=== PATIENT | female | born 1955 | race Caucasian/White ===

== ENCOUNTER 2019-07-25 14:40 | Emergency (ER) | payer BC ==
[~2019-07-25] VITALS: Ht 160 cm; Wt 53.0 kg
[2019-07-25 15:23] LABS: BASOPHILS # (AUTO) 0.1 X10'3 (0-0.2); EOSINOPHILS % (AUTO) 0.7 % (0-6); HEMATOCRIT 46.8 % (35.0-45.0); HEMOGLOBIN 16.2 g/dl (12.0-16.0); LYMPHOCYTES # (AUTO) 1.8 X10'3 (1.1-4.8); LYMPHOCYTES % (AUTO) 26.7 % (21-51); MEAN CORPUSCULAR HEMOGLOBIN 31.4 PG (27.0-31.0); MEAN CORPUSCULAR HGB CONC 34.6 g/dL (33.0-36.5); MEAN CORPUSCULAR VOLUME 90.7 FL (78-98); MEAN PLATELET VOLUME 8.7 FL (7.4-10.4); MONOCYTES # (AUTO) 0.3 X10'3 (0-0.9); MONOCYTES % (AUTO) 5.2 % (2-12); NEUTROPHILS # (AUTO) 4.4 X10'3 (1.8-7.7); NEUTROPHILS % (AUTO) 66.4 % (42-75); PLATELET COUNT 354 X10'3 (140-440); RED BLOOD COUNT 5.15 X10'6 (4.20-5.60); RED CELL DISTRIBUTION WIDTH 13.7 % (11.5-14.5); WHITE BLOOD COUNT 6.7 X10'3 (4.5-11.0)
[2019-07-25 15:28] LABS: ALANINE AMINOTRANSFERASE 21 U/L (12-78); ALBUMIN 3.9 G/DL (3.4-5.0); ALBUMIN/GLOBULIN RATIO 1.1 (1.1-1.5); ALKALINE PHOSPHATASE 104 IU/L (46-116); ANION GAP 15 (8-16); ASPARTATE AMINO TRANSFERASE 17 U/L (10-37); BILIRUBIN,TOTAL 0.5 MG/DL (0.1-1.0); BLOOD UREA NITROGEN 21 MG/DL (7-18); CALCIUM 9.7 MG/DL (8.5-10.1); CHLORIDE 104 MMOL/L (99-107); CREATININE 0.75 MG/DL (0.40-0.90); GLUCOSE 106 MG/DL (70-104); POTASSIUM 3.8 MMOL/L (3.5-5.1); SODIUM 141 MMOL/L (135-145); TOTAL PROTEIN 7.6 G/DL (6.4-8.2); eGFR 78 ML/MIN
[2019-07-25 15:34] LABS: MAGNESIUM 2.1 MG/DL (1.5-2.4)
[2019-07-25 17:33] LABS: ETHANOL < 0.010 GM/DL (0.0-0.010)
--- NOTE | 2019-07-25 17:33 | NUR ---
Radha DAUGHTER [phone] CALL FOR QUESTIONS OR RIDE.
[2019-07-25 18:30] LABS: CLARITY,URINE SLIGHTLY CLOUDY (Clear); COLOR,URINE YELLOW (Yellow); GLUCOSE, URINE NEGATIVE (Neg); KETONES,URINE TRACE mg/dl (Neg); LEUKOCYTE ESTERASE ,URINE NEGATIVE (Neg); NITRITES, URINE NEGATIVE (Neg); OCCULT BLOOD,URINE NEGATIVE (Neg); PROTEIN,URINE NEGATIVE (Neg); UROBILINOGEN,URINE 0.2 E.U/dL (0.2-1.0)
[2019-07-25 18:42] LABS: UA COLLECTION TYPE FOLEY CATH; URINE AMPHETAMINE SCREEN NEGATIVE (Neg); URINE BARBITUATE SCREEN NEGATIVE (Neg); URINE BENZODIAZEPINES SCREEN NEGATIVE (Neg); URINE CANNABINOID SCREEN NEGATIVE (Neg); URINE COCAINE SCREEN NEGATIVE (Neg); URINE METHADONE SCREEN NEGATIVE (Neg); URINE OPIATE SCREEN NEGATIVE (Neg); URINE PHENCYCLIDINE SCREEN NEGATIVE (Neg)
[2019-07-25 18:43] LABS: HYALINE CASTS 0-3 /LPF (NEGATIVE); MUCUS STRANDS MANY /LPF (Neg); SQUAMOUS EPITHELIAL CELL,UR FEW /LPF (FEW)
[2019-07-25 18:45] LABS: BACTERIA,URINE NONE SEEN /HPF (Neg); CAL OXALATE CRYSTALS FEW /HPF (NEGATIVE); FINE GRANULAR CAST 0-3 /LPF (NEGATIVE); RBC,URINE 0-2 /HPF (0-2); WBC,URINE 0-4 /HPF (0-4)
[2019-07-25] MEDS: LORazepam 1 MG tablet PO PRN (19:56)
--- NOTE | 2019-07-25 20:42 | NUR ---
daughters work number: [phone] [place]
--- NOTE | 2019-07-25 20:43 | NUR ---
spoke with daughter who provided some background. pt had first bout of severe depression in 2016, was admitted to [facility] for mh issues. pt was doing good up until about 1.5 months ago when she stopped taking her medicine. daughter reports increasing depression and decreasing ability to care for herself, to the point that she barely speaks now.
--- NOTE | 2019-07-25 20:45 | NUR ---
pt reporting extreme anxiety so consult with dr bustos, verbal order for ativan 1 mg prn [id number].
--- NOTE | 2019-07-25 21:22 | NUR ---
pt is lying in bed staring at ceiling. no s/s distress noted.
--- NOTE | 2019-07-25 22:35 | NUR ---
pt is lying in bed resting. no s/s of distress noted, will continue to monitor.
--- NOTE | 2019-07-26 06:30 | NUR ---
Pt is resting in bed peacefully at change of shift. She requests coffee and this was accomodated. No observed distress. Will continue to monitor.
--- NOTE | 2019-07-26 07:25 | NUR ---
Pt is A&O x4. She is answering appropriately. Thought process is linear and her speech is clear. 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 She reports that she had one other episode like this in the past, approximately three years ago, with symptoms of "almost catatonia". She reports at that time she went off of her antidepressants because she "felt good and didn't think I needed them". She reports she is not sure what happened this time, but she states that she was lucid during her withdrawn behavior and just felt "really scared and like I wanted to talk and move but couldn't". She is pleasant and cooperative with care. She reports weight loss since May, going from 133 to 118lbs. She has a FC in place for retention and reports difficulty having a bowel movement.
--- NOTE | 2019-07-26 08:33 | NUR ---
Packet faxed to [facility]
--- NOTE | 2019-07-26 08:33 | NUR ---
Pt is sitting in her bed eating breakfast at this time, no distress observed.
--- NOTE | 2019-07-26 09:40 | NUR ---
Pt is resting in bed peacefully with hwead raised and eyes open. No distress observed.
--- NOTE | 2019-07-26 10:40 | NUR ---
Pt is resting in bed peacefully at this time. Pt reports that she has not hada BM in sometime. Will discuss with .
--- NOTE | 2019-07-26 11:45 | NUR ---
Pt is inquiring what the next steps are in her plan of care. Reassured patient that [facility] will be there to talk to her shortly. Pt verbalized understanding and denies needs at this time.
[2019-07-26] MEDS ORDERED: magnesium hydroxide 30ml (MOM) UD suspension PO ONE (12:55)
--- NOTE | 2019-07-26 13:20 | NUR ---
D/C'd Herring. 950ml of dark diego urine emptied. Encouraged fluid intake. Will continue to monitor for voiding habits.
--- NOTE | 2019-07-26 13:43 | NUR ---
LIZABETH Pro sent on break, pt currently sitting quietly on bed. Pt noted to have milk of mag order and I inquired pt if she was having some indigestion or upset stomach. Pt reports having "some" but reports it's going away. Offered med to pt and pt declined.
--- NOTE | 2019-07-26 13:56 | NUR ---
Pt was seen by [facility] worker Jack. Pt placed on 5150.
--- NOTE | 2019-07-26 15:00 | NUR ---
Gave Pt MOM for no BM. Will continue to monitor. Pt denies complaints at this time.
[2019-07-26] MEDS: LORazepam 1 MG tablet PO PRN (16:02)
--- NOTE | 2019-07-26 16:05 | NUR ---
Pt is seen ambulating in the unit with a 4WW. She was yet to have a BM or void will continue to monitor.
--- NOTE | 2019-07-26 17:44 | NUR ---
Offered Pt apple juice. Pt is drinking this. Pt is standing up at the nurse's station right now. No distress observed. Pt denies complaints at this time.
[2019-07-26] MEDS ORDERED: LAMO100T PO (19:02)
--- NOTE | 2019-07-26 20:08 | NUR ---
The patient has been resting on her bed. She is friendly and pleasant with staff. She is alert and oriented. She had her conroy cath removed at 1400 today and she did get up to the bathroom and voided 400 cc. She cannot remember when she had a BM but she has good bowel sounds and was given MOM in the am.
--- NOTE | 2019-07-26 20:16 | NUR ---
The patient has been accepted by [facility]
[2019-07-26 20:51] VITALS: BP 131/87
[2019-07-26] MEDS ORDERED: CLON0.5T4 PO (22:58)
[2019-07-26] MEDS ORDERED: CLOM50CA4 PO (22:58)
[2019-07-26] MEDS ORDERED: PARO-62 PO (22:58)
[2019-07-26] MEDS ORDERED: MIRT15TA PO (23:02)
== END 2019-07-26 20:54 | disposition home or self-care (01) ==
LOC: ER 14:41
DX: F79 Unspecified intellectual disabilities (principal); R62.7 Adult failure to thrive; Z91.14 Patient's other noncompliance with medication regimen
CPT/HCPCS: 36415; 80053; 80305; 80320; 81001; 83735; 83880; 84443; 85025; 99284; 99285

== ENCOUNTER 2019-07-26 20:23 | Inpatient (IN) | payer BC ==
[~2019-07-26] VITALS: Ht 160 cm; Wt 44.0 kg
[~2019-07-26 20:23] MED LIST: LAMO100T PO
[2019-07-26] MEDS ORDERED: mag hydrox/Alum hydrox/simeth 30ml oral suspension PO PRN (21:10)
[2019-07-26] MEDS ORDERED: loperamide 2mg capsule PO PRN (21:10)
[2019-07-26] MEDS ORDERED: acetaminophen 325mg tablet PO PRN ×2 (21:10)
[2019-07-26] MEDS ORDERED: mirtazapine 15mg tablet PO ONE (22:35)
[2019-07-26] MEDS ORDERED: CLON0.5T4 PO (22:58)
[2019-07-26] MEDS ORDERED: CLOM50CA4 PO (22:58)
[2019-07-26] MEDS ORDERED: PARO-62 PO (22:58)
[2019-07-26] MEDS ORDERED: MIRT15TA PO (23:02)
--- NOTE | 2019-07-26 23:35 | NUR ---
Nursing Progress Note Legal hold: 5150 Client on involuntary status for GD Why are they here: Pt has not been eating or performing ADLs. She has lost 15 pounds in the last month and a half. She has also not been taking her meds and is aware she needs help but is unable to state what she needs help with. Per Dr Yañez office reports concern as the pts weight dropped significantly from 133 to 118. Assessment Pt arrived on floor accompanied by Nevin Richter and security. 2 person skin assessment was completed by Corby BARONE and Earline BARONE. Pt is calm, cooperative and took shower when she arrived. pt reports she is here because she needs help but is unable to state what she needs help with. Pt is having trouble formulating thoughts and difficulty recalling events. Pt reports she needs help with sleep and has been unable to sleep. Pt is med compliant, complained of feeling tired. Pt is cooperative with assessment and went to sleep shortly after arriving. Pt requested water and juice and was provided with a snack. S/I, H/I: denies A/VH: denies Sleep: poor sleep, difficulty falling asleep ADL's: independent Group attendance: no evening groups Were meds taken: yes Any med S/E none reported or observed Mental Status Exam Appearance: adequately groomed and dressed, pt showered this evening and brushed her hair Eye contact: good Behavior: calm cooperative Speech: normal rate and rhythm Mood: depressed Affect: constricted Thought process: thought blocking, linear Thought Content: asking about medications to go to bed Cognition: Pt is oriented to person, place, time, but she has difficulty with some recent and remote events. She doesnt recall what year she had surgery on her leg, then doesnt recall if she had a flu shot this year but states she had one. She cant recall if she has been taking her meds or when she had her last BM. According to ER nurse she had a small BM today. Insight: fair Judgment: fair PRNs used: none Interventions Therapeutic interventions: 1:1 therapeutic assessment, maintained safe therapeutic milieu, provided active listening with positive reinforcement, provided medication administration/education/monitoring as needed; Q15 safety checks. Restraints/seclusion/emergency medication: N/A Justification of Continued Inpatient Treatment: Continued therapeutic support and medication management needed to provide stabilization, prevent decompensation, improve coping mechanisms decreasing risk to patient and re-admittance.
[2019-07-27 07:30] VITALS: BP 105/72
[2019-07-27 08:14] LABS: HEMOGLOBIN A1C 5.1 % (4.5-6.2)
[2019-07-27 08:22] LABS: CHOLESTEROL 161 MG/DL (0-200); HDL CHOLESTEROL 53 MG/DL (35-60); LDL CHOLESTEROL 96 MG/DL (50-100); TRIGLYCERIDES 78 MG/DL (20-135)
--- NOTE | 2019-07-27 10:00 | NUR ---
Pt. c/o of not being able to urinate this am. Bladder palpated and feels distended. Pt. bladder scanned and shows 999ml of urine. Hospitalist paged.
--- NOTE | 2019-07-27 10:30 | NUR ---
RN received order from hospitalist for Conroy catheter, however, pt. refused. RN offered to have female nurse place conroy but pt. continued to refuse. Hospitalist paged.
[2019-07-27] MEDS ORDERED: tamsulosin 0.4mg capsule PO ONE (10:50)
--- NOTE | 2019-07-27 11:00 | NUR ---
Pt. agreeable to medication to assist urinary retention. Flomax 0.4mg ordered and pt. took medication. Pt. reported she was able to urinate only a little. Pt. has hat and encouraged to urinate into hat.
[2019-07-27] MEDS: magnesium hydroxide 30ml (MOM) UD suspension PO PRN (11:25)
--- NOTE | 2019-07-27 11:25 | NUR ---
Pt. given milk of magnesia for c/o of constipation.
--- NOTE | 2019-07-27 13:00 | NUR ---
Pt. reports she has not urinated except once this AM. RN asked pt. if she would agree to be bladder scanned, pt. refused.
[2019-07-27] MEDS ORDERED: thiamine 100mg tablet PO ONE (13:55)
[2019-07-27] MEDS ORDERED: folic acid 1mg tablet PO ONE (13:55)
--- NOTE | 2019-07-27 14:00 | NUR ---
RN asked pt. if she would agree to be bladder scanned. Pt. refused. Pt. continues to refuse Herring catheterization.
[2019-07-27] MEDS: LORazepam 1 MG tablet PO PRN (14:17)
--- NOTE | 2019-07-27 14:41 | NUR ---
Malnutrition consult: Per MD notes pt is reported to have stopped eating, caring for self, and performing ADLS over the last 1.5 months resulting in 15 lb wt loss from 133 lbs to 118 lbs. This is severe wt loss of 11% in 1.5 months. Likely pt with suboptimal PO intake [employer]. Pt currently meets criteria for malnutrition, MD notified. Pt presented with depression, memory problems, reduced ability to care for self and urinary retention. Malnutrition education with ONS recommendations not appropriate at this time. Per RN notes pt with small BM 07/26 with first dose of PRN MoM given today, pt s/p CT with findings of small-moderate hiatal hernia. Pt currently on regular diet documented with 25-50% PO intake at breakfast however documented to have refused lunch not meeting nutrient needs. Will continue to follow closely and make recommendations as appropriate. Recommendations: 1) Continue regular diet 2) Encourage PO intake; honor food preferences; monitor need for ONS 3) Bowel care PRN 4) Wt per rx Addendum: 07/27/19 at [address] Amended: Links added.
--- NOTE | 2019-07-27 15:00 | NUR ---
RN asked pt. if she would agree to be bladder scanned. Pt. refused. Pt. continues to refuse Herring catheterization.
--- NOTE | 2019-07-27 16:00 | NUR ---
RN asked pt. if she would agree to receive bladder scanner and/or Herring catheter but Pt. refused.
--- NOTE | 2019-07-27 17:00 | NUR ---
RN asked pt. if she would agree to receive bladder scanner and/or Herring catheter but Pt. refused.
--- NOTE | 2019-07-27 18:10 | NUR ---
Herring catheter placed and pt. tolerated well. 500 mls of diego colored urine noted in Herring bag Will continue to monitor.
--- NOTE | 2019-07-27 18:31 | NUR ---
Nursing Progress Note Legal hold: 5150 SBAR received by LARRY Patten. Client on involuntary status for GD Why are they here: Pt has not been eating or performing ADLs. She has lost 15 pounds in the last month and a half. She has also not been taking her meds and is aware she needs help but is unable to state what she needs help with. Per Dr Yañez office reports concern as the pts weight dropped significantly from 133 to 118. Assessment Pt. asleep at start of shift. Ate 25% of breakfast. Pt. reports she has not urinated by 9AM and pt. bladder scanned with result of 999ml urine residual. Hospitalist contacted and ordered Herring catheter placed but pt. refused. 1:1 done at bedside pt. reports 10/10 depression but denies SI/HI, A/V Hallucinations. Pt. offers minimal information during interview and does not give background information to her admission. RN received order for Flomax 0.4mg po and pt took medication. Pt. reported only minimal urine output. Pt. has hat in bathroom. Pt. given Ativan 1mg po for anxiety. Pt. did not attend groups but laid in bed for majority of day. RN asked pt. throughout the day if she would receive the Herring or allow a bladder scan but pt. refused both. Pt. denies pain but reports discomfort. Pt. did agree to receive Herring catheter and tolerated well. S/I, H/I: denies A/VH: denies Sleep: Pt. awake majority of shift. ADL's: independent Group attendance: no evening groups Were meds taken: yes Any med S/E none reported or observed Mental Status Exam Appearance: adequately groomed and dressed. Eye contact: good Behavior: calm but resistive to care. Speech: normal rate and rhythm Mood: depressed Affect: constricted Thought process: thought blocking, linear Thought Content: Difficult to assess. Refusing Herring Catheter. Cognition: Pt is oriented to person, place, time, but not to event. Insight: Poor Judgment: poor PRNs used: Ativan Interventions Therapeutic interventions: 1:1 therapeutic assessment, maintained safe therapeutic milieu, provided active listening with positive reinforcement, provided medication administration/education/monitoring as needed; Q15 safety checks. Pt. requires Herring catheterization for urinary retention. Restraints/seclusion/emergency medication: N/A Justification of Continued Inpatient Treatment: Continued therapeutic support and medication management needed to provide stabilization, prevent decompensation, improve coping mechanisms decreasing risk to patient and re-admittance.
[2019-07-27 20:00] VITALS: BP 99/56
[2019-07-27] MEDS: docusate sod 100mg capsule PO SCH (20:33)
[2019-07-27] MEDS: thiamine 100mg tablet PO SCH (20:34)
[2019-07-27] MEDS ORDERED: polyethylene glycol 3350 17gm powd pack PO ONE (21:00)
[2019-07-27] MEDS ORDERED: mirtazapine 15mg tablet PO SCH (21:00)
--- NOTE | 2019-07-27 23:42 | NUR ---
Nursing Progress Note Legal hold: 5150 SBAR received by LARRY Patten. Client on involuntary status for GD Why are they here: Pt has not been eating or performing ADLs. She has lost 15 pounds in the last month and a half. She has also not been taking her meds and is aware she needs help but is unable to state what she needs help with. Per Dr Yañez office reports concern as the pts weight dropped significantly from 133 to 118. Assessment Pt is laying in bed at change of shift. She remained in bed for the duration of the shift. Pt reports she ate dinner but appetite is low. Pt drinks some water and took evening meds. Pt reports she is feeling "ok" but gives minimal response to questions. Appears depressed. Pt is med compliant. Pt denies any pain or discomfort, denies s/i, denies a/vh. Pt did not attend groups today stating she didnt feel like getting out of bed. S/I, H/I: denies A/VH: denies Sleep: Pt reports difficulty falling asleep ADL's: independent Group attendance: no evening groups Were meds taken: yes Any med S/E none reported or observed Mental Status Exam Appearance: adequately groomed and dressed. Eye contact: good Behavior: calm but resistive to care. Speech: soft spoken, normal rate, rhythm Mood: depressed Affect: constricted Thought process: thought blocking, linear Thought Content: Difficult to assess. Asks only for sleep medicine Cognition: Pt is oriented to person, place, time, but not to event. Insight: Poor Judgment: poor PRNs used: Ativan Interventions Therapeutic interventions: 1:1 therapeutic assessment, maintained safe therapeutic milieu, provided active listening with positive reinforcement, provided medication administration/education/monitoring as needed; Q15 safety checks. Pt. requires Herring catheterization for urinary retention. Restraints/seclusion/emergency medication: N/A Justification of Continued Inpatient Treatment: Continued therapeutic support and medication management needed to provide stabilization, prevent decompensation, improve coping mechanisms decreasing risk to patient and re-admittance.
[2019-07-28] MEDS: folic acid 1mg tablet PO SCH (07:34)
[2019-07-28] MEDS: docusate sod 100mg capsule PO SCH ×2 (07:34→20:30)
[2019-07-28] MEDS: multivitamins, therapeutics tablet PO SCH (07:34)
[2019-07-28] MEDS: thiamine 100mg tablet PO SCH ×2 (07:34→20:30)
[2019-07-28 08:00] VITALS: BP 133/77
--- NOTE | 2019-07-28 09:20 | NUR ---
Met with Ct to complete Psychosocial Assessment. She had difficulty answering questions with very delayed responses. She appeared to have very little insight regarding her symptoms. She reported she is not comfortable going to groups, partly because she has a catheter. Encouraged her to attend groups. She has not worked since May and does not seem to know if she has any income. [employer] will attempt to contact her sister to get more information. JORGE Ram Addendum: 07/28/19 at 0939 by Rosy Casanova Amended: Links added.
--- NOTE | 2019-07-28 11:20 | NUR ---
Attempted to reach Swapna's sister, Agnes (ph# [phone]). No answer and unable to leave a message. JORGE Ram
[2019-07-28] MEDS: lactose-reduced food (Ensure Enlive) - 237ml bottle PO SCH ×2 (13:00→18:31)
--- NOTE | 2019-07-28 14:20 | NUR ---
Pt. discharged to home picked up by in vehicle. Pt. discharged with all belongings. RN discussed f/u appointments and medication regimen and pt. verbalized understanding. Pt. discharged with scripts. Pt. denies SI/HI, A/V H and is in no apparent psychological or emotional distress. Pt. is alert and oriented x4. Addendum: 07/28/19 at 1453 by Kailash Henning RN ATTENTION: Note written on wrong patient. Pt. not discharged.
--- NOTE | 2019-07-28 17:30 | NUR ---
Nursing Progress Note Legal hold: 5150 SBAR received by LARRY Patten. Client on involuntary status for GD Why are they here: Pt has not been eating or performing ADLs. She has lost 15 pounds in the last month and a half. She has also not been taking her meds and is aware she needs help but is unable to state what she needs help with. Per Dr Yañez office reports concern as the pts weight dropped significantly from 133 to 118. Assessment Pt. laying in bed at start of shift and awake. Pt. has Herring catheter in place and secured. Pt. ate 25% of breakfast and 25% of lunch. Pt. reports depression 06/16 and anxiety 06/16. Pt. did not want any anxiolytic medication. Pt. has thought blocking and is difficult to get information from during interview. Pt. takes a long time to respond to questions. Pt. reports she has not had a bowel movement for at least 5 days but maybe longer, she is not sure. Pt. reports she is embarrassed by the Herring catheter and does not want to get out of bed. Pt. instructed to shift weight to her sides every hour, pt. is compliant. Pt. had 300mls output from Herring catheter today. S/I, H/I: denies A/VH: denies Sleep: Pt. laying in bed but does not appear to nap during the day. ADL's: independent Group attendance: no evening groups Were meds taken: yes Any med S/E none reported or observed Mental Status Exam Appearance: adequately groomed and dressed. Eye contact: good Behavior: calm but resistive to care. Speech: soft spoken, normal rate, rhythm Mood: depressed Affect: Congruent with mood. Thought process: thought blocking, linear Thought Content: difficult to assess due to thought blocking Cognition: A&Ox4 Insight: Poor Judgment: poor PRNs used: None Interventions Therapeutic interventions: 1:1 therapeutic assessment, maintained safe therapeutic milieu, provided active listening with positive reinforcement, provided medication administration/education/monitoring as needed; Q15 safety checks. Pt. requires Herring catheterization for urinary retention. Restraints/seclusion/emergency medication: N/A Justification of Continued Inpatient Treatment: Continued therapeutic support and medication management needed to provide stabilization, prevent decompensation, and improve coping mechanisms decreasing risk to patient and re-admittance.
[2019-07-28 20:00] VITALS: BP 135/87
[2019-07-28] MEDS: LORazepam 1 MG tablet PO PRN (20:30)
--- NOTE | 2019-07-28 23:24 | NUR ---
Nursing Progress Note Legal hold: 5150 SBAR received by LARRY Patten. Client on involuntary status for GD Why are they here: Pt has not been eating or performing ADLs. She has lost 15 pounds in the last month and a half. She has also not been taking her meds and is aware she needs help but is unable to state what she needs help with. Per Dr Yañez office reports concern as the pts weight dropped significantly from 133 to 118. Assessment Pt laying in bed at change of shift. She doesn't want to get out of bed because of the Herring catheter in place. Catheter care was completed this shift. Pt reports no discomfort. Pt is tearful and states she feels "afraid" and would like someone to sit with her. She denies hearing any voices, denies s/i. Pt reports some anxiety and was given prn ativan, she has some improvement with thought blocking and says more after taking the ativan. pt states "why did this happen to me? I should have made different choices in life." pt is unable to ellaborate what she means and becomes tearful and states she can't say. Pt seems to allude that she isnt comfortable talking about something, and looks over her shoulder to see if anyone can hear what she is about to tell me. Pt stopped talking when a door in the hallway was shut. She was offered prune juice and states "you've been very sweet, so I will drink this, but only for you." Explained to pt that she hasnt been drinking much water and this might also help with hydration. Pt ate 50% of her protein with her dinner and had a protein shake. S/I, H/I: denies A/VH: denies Sleep: Pt. laying in bed ADL's: independent Group attendance: no evening groups Were meds taken: yes Any med S/E none reported or observed Mental Status Exam Appearance: adequately groomed and dressed. Eye contact: good Behavior: calm but resistive to care. Speech: soft spoken, normal rate, rhythm Mood: depressed Affect: Congruent with mood. Thought process: thought blocking, linear Thought Content: difficult to assess due to thought blocking Cognition: A&Ox4 Insight: Poor Judgment: poor PRNs used: ativan Interventions Therapeutic interventions: 1:1 therapeutic assessment, maintained safe therapeutic milieu, provided active listening with positive reinforcement, provided medication administration/education/monitoring as needed; Q15 safety checks. Pt. requires Herring catheterization for urinary retention. Restraints/seclusion/emergency medication: N/A Justification of Continued Inpatient Treatment: Continued therapeutic support and medication management needed to provide stabilization, prevent decompensation, and improve coping mechanisms decreasing risk to patient and re-admittance. Pts daughter called and states her mother has a hx of not eating if she feels constipated and has had digestion issues in the past. pts daughter would also like the doctor to know her mother had gene testing done at Dr. 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 Pts daughter was given visiting hour information. She also added that her mother seemed to do better when she was given ativan in the ER in the past.
[2019-07-29 08:00] VITALS: BP 123/77
[2019-07-29] MEDS: lactose-reduced food (Ensure Enlive) - 237ml bottle PO SCH ×3 (08:00→18:00)
[2019-07-29] MEDS: docusate sod 100mg capsule PO SCH ×2 (08:39→20:23)
[2019-07-29] MEDS: thiamine 100mg tablet PO SCH ×2 (08:39→20:23)
[2019-07-29] MEDS: multivitamins, therapeutics tablet PO SCH (08:39)
[2019-07-29] MEDS: folic acid 1mg tablet PO SCH (08:39)
[2019-07-29] MEDS: LORazepam 1 MG tablet PO PRN ×3 (08:43→22:13)
[2019-07-29] MEDS ORDERED: magnesium citrate 296ml oral solution PO ONE (10:50)
--- NOTE | 2019-07-29 11:13 | NUR ---
Reassessment: Pt with 25-50% PO intake on regular diet not meeting nutrient needs. Ensure Enlive has been ordered TID and pt refused first offer at dinner last night, pending documentation of ONS acceptance today. LBM documented as 07/22. Pt received prune juice yesterday per RN notes and per med list received one time dose of Mag Citrate today. Pt also with routine Colace and MoM PRN last given 07/27. Likely constipation and patient's current mentation impacting PO intake. Will continue to follow closely and make recommendations as appropriate. Recommendations: 1) Continue regular diet 2) Encourage PO intake; honor food preferences 3) Ensure Enlive TID 4) Routine bowel care 5) Wt per rx Addendum: 07/29/19 at [address] Amended: Links added.
--- NOTE | 2019-07-29 17:51 | NUR ---
Nursing Progress Note Legal hold: 5150 SBAR received by LARRY Del Real. Client on involuntary status for GD Why are they here: Pt has not been eating or performing ADLs. She has lost 15 pounds in the last month and a half. She has also not been taking her meds and is aware she needs help but is unable to state what she needs help with. Per Dr Yañez office reports concern as the pts weight dropped significantly from 133 to 118. Assessment Pt laying in bed at change of shift. She doesn't want to get out of bed because of the Herring catheter in place. Patient takes her medications without issue. She appears anxious, looking around, pausing before answering questions and fidgeting her hands, ativan administered. She states that she has been eating her meals in her room due to the Herring. Patient states that she would like to take a shower after her Herring is removed. Patients daughter visits and allowed time for questions. Both patient and daughter understand plan of care and all questions are answered. Patient is fearful of the Herring, feeling that it will cause her . Patient reports she feels the need to have a BM but is unable to, Mag sitrate is administered. Herring is removed, urine in Herring bag is clear but urine in the top of tube is cloudy and appears to have sediment. Patient attempts to urinate and the small amount that is excreted into the hat is cloudy with sediment. Patient denies any pain. Patient showers, attends groups, attends meals in group room and walks the rashid during the day. Patient again appears anxious expressing the same s/s as before, Ativan administered and aromatherapy used. S/I, H/I: denies A/VH: denies Sleep: 5.25hrs noc ADL's: showered Group attendance: yes Were meds taken: yes Any med S/E none reported or observed Mental Status Exam Appearance: adequately groomed and dressed. Eye contact: direct Behavior: friendly but fearful Speech: soft spoken, normal rate, rhythm Mood: afraid but pleasant Affect: Congruent with mood. Thought process: thought blocking, linear Thought Content: afraid that her illness will lead to Cognition: A&Ox4 Insight: Poor Judgment: poor PRNs used: ativan Interventions Therapeutic interventions: 1:1 therapeutic assessment, maintained safe therapeutic milieu, provided active listening with positive reinforcement, provided medication administration/education/monitoring as needed; Q15 safety checks. Pt. requires Herring catheterization for urinary retention. Restraints/seclusion/emergency medication: N/A Justification of Continued Inpatient Treatment: Continued therapeutic support and medication management needed to provide stabilization, prevent decompensation, and improve coping mechanisms decreasing risk to patient and re-admittance.
[2019-07-29 19:00] VITALS: BP 105/70
--- NOTE | 2019-07-30 00:51 | NUR ---
Nursing Progress Note Legal hold: 5250 Exp 08/12 @ 2054; Hearing 08/01/19 Report received from LIAZBETH Gonzalez with use of SBAR Client on involuntary status for GD Why are they here: Pt has not been eating or performing ADLs. She has lost 15 pounds in the last month and a half. She has also not been taking her meds and is aware she needs help but is unable to state what she needs help with. Per Dr Yañez office reports concern as the patient's weight dropped significantly from 133 to 118. Assessment What happened this shift: Pt laying in bed at shift change. This automotive service writer introduced self and established rapport. Pt's FC was d/c earlier in the day. Pt states "I left a big mess in the bathroom, there is stuff all over." Pt has also been constipated was administered Cit Mag earlier. Pt had a med sized hard ball of stool and this automotive service writer measured 550 cc of urine. At this time urine appeared cloudy w/sediment. Wasn't sure what could have been sediment vs. TP. Pt kept apologizing about "the mess" and perseverated on how she could "poop or pee." Reinforced the positive of yes she is urinating and yes she had a small BM. Encouraged water and for pt to ambulate. When asked if pt felt depressed "I feel depressed because I can't poop." Pt denies SI and when asked what brought her to [facility] pt states "it was because I was dehydrated. Pt was compliant with medication and 1:1 assessment. Later pt was feeling anxious and she requested Ativan. Explained to pt that a clean catch urine sample is needed and to let this automotive service writer know before she has to urinate again. Checked on pt around 2330 and measured out 750 cc of urine from hat. Reminded pt about urine sample. S/I, H/I: None reported or observed A/VH: None reported or observed Sleep: Refer to Sleep Assessment ADL's: Independent Group attendance: slot shift supervisor, not group Were meds taken: Medication compliant Any med S/E: None reported or observed Mental Status Exam Appearance: Adequately groomed and dressed. Eye contact: Good Behavior: Cooperative, guarded Speech: Soft, normal rate, rhythm Mood: A little anxious, depressed Affect: Congruent with mood. Thought process: Linear Thought Content: "I can't go to the bathroom" Cognition: A&Ox4 Insight: Poor Judgment: Poor PRNs used: Ativan Interventions Therapeutic interventions: 1:1 therapeutic assessment, maintained safe therapeutic milieu, provided active listening with positive reinforcement, provided medication administration/education/monitoring as needed; Q15 safety checks. Pt. requires Herring catheterization for urinary retention. Restraints/seclusion/emergency medication: N/A Justification of Continued Inpatient Treatment: Continued therapeutic support and medication management needed to provide stabilization, prevent decompensation, and improve coping mechanisms decreasing risk to patient and re-admittance.
[2019-07-30 08:00] VITALS: BP 120/69
[2019-07-30] MEDS: PARoxetine 10mg tablet PO SCH (08:02)
[2019-07-30] MEDS: docusate sod 100mg capsule PO SCH ×2 (08:03→19:24)
[2019-07-30] MEDS: thiamine 100mg tablet PO SCH ×2 (08:03→19:24)
[2019-07-30] MEDS: folic acid 1mg tablet PO SCH (08:03)
[2019-07-30] MEDS: multivitamins, therapeutics tablet PO SCH (08:03)
[2019-07-30] MEDS: lactose-reduced food (Ensure Enlive) - 237ml bottle PO SCH ×3 (08:24→17:55)
[2019-07-30] MEDS: LORazepam 1 MG tablet PO PRN ×2 (08:24→20:21)
[2019-07-30] MEDS: magnesium hydroxide 30ml (MOM) UD suspension PO PRN (08:24)
[2019-07-30 10:46] LABS: CLARITY,URINE SLIGHTLY CLOUDY (Clear); COLOR,URINE YELLOW (Yellow); GLUCOSE, URINE NEGATIVE (Neg); KETONES,URINE NEGATIVE (Neg); LEUKOCYTE ESTERASE ,URINE LARGE (Neg); NITRITES, URINE NEGATIVE (Neg); OCCULT BLOOD,URINE MODERATE (Neg); PROTEIN,URINE NEGATIVE (Neg); UA COLLECTION TYPE CLN CATCH MIDSTREAM; UROBILINOGEN,URINE 0.2 E.U/dL (0.2-1.0)
[2019-07-30 11:00] LABS: SQUAMOUS EPITHELIAL CELL,UR FEW /LPF (FEW)
[2019-07-30 11:01] LABS: WBC,URINE 30-50 /HPF (0-4)
[2019-07-30 11:02] LABS: WBC CLUMPS,URINE FEW /HPF (NEGATIVE)
[2019-07-30 11:05] LABS: BACTERIA,URINE 1+ /HPF (Neg)
--- NOTE | 2019-07-30 18:14 | NUR ---
Nursing Progress Note Legal hold: 5250 Exp 08/12 @ 2054; Hearing 08/01/19 Report received from Polina Worrell RN with use of SBAR Client on involuntary status for GD Why are they here: Pt has not been eating or performing ADLs. She has lost 15 pounds in the last month and a half. She has also not been taking her meds and is aware she needs help but is unable to state what she needs help with. Per Dr Yañez office reports concern as the patient's weight dropped significantly from 133 to 118. Assessment What happened this shift: Patient is observed sleeping at change of shift. RN met with patient prior to breakfast. Patient becomes tearful stating that she does not know what she is supposed to do today. RN went over medications with patient. Collected 800cc in urine hat, explained collection needed of urine sample. Patient questions answered. Patient appears very anxious, looking around, uncomfortable, states she cant go to breakfast, Ativan administered. Patient states that she had a very small, hard BM last evening, MOM administered. Patient takes all other medications without issue. Patient pauses often during conversation, she does not finish what she is saying and looks away staring off. Patient is observed resting in her bed. She gets up for lunch and then returns back to her room. Urine sample collected and sent to lab. Patient reports another small, hard BM this afternoon. S/I, H/I: None reported or observed A/VH: None reported or observed Sleep: 9.25hrs NOC ADL's: Independent Group attendance: no Were meds taken: yes Any med S/E: None reported or observed Mental Status Exam Appearance: Adequately groomed and dressed. Eye contact: direct Behavior: depressed, confused Speech: Soft, pauses often Mood: anxious, depressed Affect: Congruent with mood. Thought process: confused Thought Content: what she will do for the day Cognition: A&Ox4 Insight: Poor Judgment: Poor PRNs used: Ativan Interventions Therapeutic interventions: 1:1 therapeutic assessment, maintained safe therapeutic milieu, provided active listening with positive reinforcement, provided medication administration/education/monitoring as needed; Q15 safety checks. Pt. requires Herring catheterization for urinary retention. Restraints/seclusion/emergency medication: N/A Justification of Continued Inpatient Treatment: Continued therapeutic support and medication management needed to provide stabilization, prevent decompensation, and improve coping mechanisms decreasing risk to patient and re-admittance.
[2019-07-30 20:00] VITALS: BP 119/71
--- NOTE | 2019-07-31 01:08 | NUR ---
Nursing Progress Note Legal hold: 5250 Exp 08/12 @ 2054; Hearing 08/01/19 Report received from LIZABETH Del Valle with use of SBAR Client on involuntary status for GD Why are they here: Pt has not been eating or performing ADLs. She has lost 15 pounds in the last month and a half. She has also not been taking her meds and is aware she needs help but is unable to state what she needs help with. Per Dr Yañez office reports concern as the patient's weight dropped significantly from 133 to 118. Hx MDD with psychotic features. Assessment What happened this shift: Pt in room resting. 1:1 completed at bedside. Pt has delayed response time to questions, and often stops what she is saying mid-sentence, requiring prompting to reinitiate conversational topic. She states she is not suicidal but continues to be depressed and anxious. States that she has a volatile history with her sister (with whom she lives) and that it contributes to her depression; pt would not elaborate on this topic when probed. Pt was unable to correctly state why she was admitted to the hospital, thinking it was because she was constipated. Pt stated she is peeing well and had a small, hard BM today. Pt requested Ativan for anxiety this evening; pt stated it was a general feeling but also due to behaviors being exhibited by a fellow pt next door. Pt visibly shaking with the commotion occurring outside of room; Ativan administered to good effect. Pt compliant with HS medications and went to sleep shortly after Ativan administration. S/I, H/I: Denies both A/VH: Denies both Sleep: See Sleep Assessment ADL's: Independent Group attendance: N/A Were meds taken: Yes Any med S/E: None reported nor observed Mental Status Exam Appearance: Adequately dressed in personal top, unit pants and nonskid socks, hair down and brushed Eye contact: Direct Behavior: Attended HS snack, Rested in room Speech: Soft, pauses often Mood: Depressed 7/10, Anxious 8/10 Affect: Blunted Thought process: Linear, occasional thought blocking Thought Content: Feeling like she is not getting much better Cognition: A&Ox3 (off for circumstance; states reason for hospital admit is because of constipation) Insight: Poor Judgment: Poor PRNs used: Ativan Interventions Therapeutic interventions: 1:1 therapeutic assessment, maintained safe therapeutic milieu, provided active listening with positive reinforcement, provided medication administration/education/monitoring as needed; Q15 safety checks. Pt. requires Herring catheterization for urinary retention. Restraints/seclusion/emergency medication: N/A Justification of Continued Inpatient Treatment: Continued therapeutic support and medication management needed to provide stabilization, prevent decompensation, and improve coping mechanisms decreasing risk to patient and re-admittance.
[2019-07-31 07:30] VITALS: BP 119/71
[2019-07-31] MEDS: folic acid 1mg tablet PO SCH (08:09)
[2019-07-31] MEDS: docusate sod 100mg capsule PO SCH ×2 (08:10→20:00)
[2019-07-31] MEDS: multivitamins, therapeutics tablet PO SCH (08:10)
[2019-07-31] MEDS: PARoxetine 10mg tablet PO SCH (08:10)
[2019-07-31] MEDS: thiamine 100mg tablet PO SCH ×2 (08:10→20:18)
[2019-07-31] MEDS: lactose-reduced food (Ensure Enlive) - 237ml bottle PO SCH ×3 (08:12→18:15)
[2019-07-31] MEDS: LORazepam 1 MG tablet PO PRN (10:36)
--- NOTE | 2019-07-31 17:45 | NUR ---
Nursing Progress Note Legal hold: 5250 Exp 08/12 @ 2054; Hearing 08/01/19 Report received from Polina Worrell RN with use of SBAR Client on involuntary status for GD Why are they here: Pt has not been eating or performing ADLs. She has lost 15 pounds in the last month and a half. She has also not been taking her meds and is aware she needs help but is unable to state what she needs help with. Per Dr Yañez office reports concern as the patient's weight dropped significantly from 133 to 118. Hx MDD with psychotic features. Assessment What happened this shift: Pt. asleep at start of shift. Pt. took all medications and ate all meals in the community room. Pt. does not eats only part of her meals. Pt. reports she urinated twice this am. Pt. denies SI/HI, A/V H. Pt. has difficulty answering questions as pt. appears to have thought blocking. Pt reports depression and anxiety rated 7/10. Pt. c/o of difficulty urinating but did not want to be bladder scanned. RN had pt. sit on the toilet but pt. refused to us the hat. Pt. did urinate diego colored urine. Pt. isolative to room but did go to group. At 1600 pt. again c/o of difficulty urinating, RN had pt. sit on toilet and pt. urinated 500cc bright yellow urine. RN paged hospitalist because of abnormal UA from yesterday. Hospitalist informed RN to wait until culture and sensitivity is complete since pt. has no fever and denies pain on urination. Encouraged to drink fluids. Pt. drank all of her Ensure at dinner time. S/I, H/I: Denies both A/VH: Denies both Sleep: Pt. in bed majority of day but does not appear to be asleep. ADL's: Independent Group attendance: Yes Were meds taken: Yes Any med S/E: None reported nor observed Mental Status Exam Appearance: Adequately dressed in personal top, unit pants and nonskid socks, hair down and brushed Eye contact: Direct Behavior: Isolative to room Speech: Soft, pauses often Mood: Depressed 7/10, Anxious 7/10 Affect: Congruent with affect. Thought process: Linear with some thought blocking. Thought Content: Somatic complaints. Cognition: A&OX4 Insight: Poor Judgment: Poor PRNs used: Ativan Interventions Therapeutic interventions: 1:1 therapeutic assessment, maintained safe therapeutic milieu, provided active listening with positive reinforcement, provided medication administration/education/monitoring as needed; Q15 safety checks. Pt. requires Herring catheterization for urinary retention. Restraints/seclusion/emergency medication: N/A Justification of Continued Inpatient Treatment: Continued therapeutic support and medication management needed to provide stabilization, prevent decompensation, and improve coping mechanisms decreasing risk to patient and re-admittance.
[2019-07-31 19:57] VITALS: BP 114/73
--- NOTE | 2019-07-31 23:53 | NUR ---
Nursing Progress Note Legal hold: 5250 Exp 08/12 @ 2054; Hearing 08/01/19 Report received from LIZABETH Boland with use of SBAR Client on involuntary status for GD Why are they here: Pt has not been eating or performing ADLs. She has lost 15 pounds in the last month and a half. She has also not been taking her meds and is aware she needs help but is unable to state what she needs help with. Per Dr Yañez office reports concern as the patient's weight dropped significantly from 133 to 118. Hx MDD with psychotic features. Assessment What happened this shift: Pt. in bed awake at start of shift. Convinced to go to group room for snack. She went to group room but returned immediately after eating. Pleasant and cooperative with care. Answers questions does not initiate conversation or volunteer information. Describes her mood as "sad" said she is depressed denies SI. Pt cooperative with care took all meds. Day shift recorded a void of 500 at 1600. At start of shift no Bladder distention abd soft non tender. Pt denied need to void all shift. 2430 pt convinced to sit on toilet to urinate. Pt voided 700cc cloudy yellow urine. Given ativan per request for sleep. S/I, H/I: Denies both A/VH: Denies both Sleep: pt unable to sleep given 1 mg Ativan per request at 0100 ADL's: Independent Group attendance: Yes Were meds taken: Yes Any med S/E: None reported nor observed Mental Status Exam Appearance: Adequately dressed in personal top, unit pants and nonskid socks, hair down and brushed Eye contact: Direct Behavior: Isolative to room Speech: Soft, pauses often Mood: Depressed 7/10, Anxious 7/10 Affect: Congruent with affect. Thought process: Linear with some thought blocking. Thought Content: Somatic complaints. Cognition: A&OX4 Insight: Poor Judgment: Poor PRNs used: none Interventions Therapeutic interventions: 1:1 therapeutic assessment, maintained safe therapeutic milieu, provided active listening with positive reinforcement, provided medication administration/education/monitoring as needed; Q15 safety checks. Pt. requires Herring catheterization for urinary retention. Restraints/seclusion/emergency medication: N/A Justification of Continued Inpatient Treatment: Continued therapeutic support and medication management needed to provide stabilization, prevent decompensation, and improve coping mechanisms decreasing risk to patient and re-admittance.
[2019-08-01] MEDS: LORazepam 1 MG tablet PO PRN ×2 (00:59→16:08)
[2019-08-01] MEDS: multivitamins, therapeutics tablet PO SCH (08:01)
[2019-08-01] MEDS: thiamine 100mg tablet PO SCH ×2 (08:01→21:06)
[2019-08-01] MEDS: docusate sod 100mg capsule PO SCH ×2 (08:01→20:00)
[2019-08-01] MEDS: PARoxetine 10mg tablet PO SCH (08:01)
[2019-08-01] MEDS: folic acid 1mg tablet PO SCH (08:01)
[2019-08-01 08:04] VITALS: BP 122/80
[2019-08-01] MEDS: lactose-reduced food (Ensure Enlive) - 237ml bottle PO SCH ×4 (08:11→18:06)
[2019-08-01] MEDS ORDERED: CefTRIAXone/D5W-Rocephin 1gm 50 ML IV SCH (12:50)
[2019-08-01] MEDS ORDERED: ciprofloxacin 250mg tablet PO ONE (13:30)
[2019-08-01 14:18] LABS: BASOPHILS # (AUTO) 0.1 X10'3 (0-0.2); BASOPHILS % (AUTO) 1.4 % (0-1); EOSINOPHILS # (AUTO) 0.1 X10'3 (0-0.9); EOSINOPHILS % (AUTO) 1.1 % (0-6); HEMATOCRIT 41.7 % (35.0-45.0); HEMOGLOBIN 14.2 g/dl (12.0-16.0); LYMPHOCYTES # (AUTO) 1.8 X10'3 (1.1-4.8); LYMPHOCYTES % (AUTO) 23.4 % (21-51); MEAN CORPUSCULAR HEMOGLOBIN 31.3 PG (27.0-31.0); MEAN CORPUSCULAR VOLUME 92.1 FL (78-98); MEAN PLATELET VOLUME 8.6 FL (7.4-10.4); MONOCYTES # (AUTO) 0.3 X10'3 (0-0.9); MONOCYTES % (AUTO) 4.1 % (2-12); NEUTROPHILS # (AUTO) 5.3 X10'3 (1.8-7.7); PLATELET COUNT 320 X10'3 (140-440); RED BLOOD COUNT 4.53 X10'6 (4.20-5.60); RED CELL DISTRIBUTION WIDTH 13.7 % (11.5-14.5); WHITE BLOOD COUNT 7.6 X10'3 (4.5-11.0)
--- NOTE | 2019-08-01 15:12 | NUR ---
Reassessment: Pt continues with fluctuating PO intake, previously up to 50-75% however most recently averaging 25-50% with 0% PO intake at lunch not meeting nutrient needs. PO intake of ONS also fluctuates with 50-100% however documented with 0% at breakfast this morning. No documented changes in weight since admit. 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 LBM 07/31. Will continue to follow closely. Recommendations: 1) Continue regular diet 2) Encourage PO intake; honor food preferences 3) Ensure Enlive TID 4) Routine bowel care 5) Wt per rx Addendum: 08/01/19 at [address] Amended: Links added.
--- NOTE | 2019-08-01 17:45 | NUR ---
Nursing Progress Note Legal hold: 5250 Exp 08/12 @ 2054; Hearing 08/01/19 Report received from LIZABETH Jara with use of SBAR Client on involuntary status for GD Why are they here: Pt has not been eating or performing ADLs. She has lost 15 pounds in the last month and a half. She has also not been taking her meds and is aware she needs help but is unable to state what she needs help with. Per Dr Yañez office reports concern as the patient's weight dropped significantly from 133 to 118. Hx MDD with psychotic features. 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 Assessment What happened this shift: Pt. awake at start of shift. Pt. took medications but did not come to community room for breakfast. Pt. ate 1/2 of her breakfast but refused her lunch. Pt. had 500ml urine out after pt. encouraged to urinate. 1:1 done at bedside, assessment difficult to complete as pt. unable to finish her responses. Pt. states, "I just don't know what to do... I... I...". Pt. continues to report depression and anxiety. Pt. did go to groups but isolates to her room most of the day. MOCA test ordered but pt. became frustrated and refused to do test at this time saying, "Please no more tests". Pt. given ativan 1mg po for anxiety. Pt. ate dinner in community room. S/I, H/I: Denies A/VH: Denies Sleep: Pt. in bed frequently but does not appear to sleep. ADL's: Independent Group attendance: Yes Were meds taken: Yes Any med S/E: None reported nor observed Mental Status Exam Appearance: Adequately dressed in personal top, unit pants and nonskid socks, hair down and brushed Eye contact: Direct Behavior: Isolative to room Speech: Soft, pauses often Mood: Depressed and anxious Affect: Congruent with affect. Thought process: Linear with some thought blocking. Thought Content: Somatic complaints. Cognition: A&OX4 Insight: Poor Judgment: Poor PRNs used: Ativan Interventions Therapeutic interventions: 1:1 therapeutic assessment, maintained safe therapeutic milieu, provided active listening with positive reinforcement, provided medication administration/education/monitoring as needed; Q15 safety checks. Pt. requires Herring catheterization for urinary retention. Restraints/seclusion/emergency medication: N/A Justification of Continued Inpatient Treatment: Continued therapeutic support and medication management needed to provide stabilization, prevent decompensation, and improve coping mechanisms decreasing risk to patient and re-admittance.
[2019-08-01 20:28] VITALS: BP 124/84
[2019-08-01] MEDS: ciprofloxacin 250mg tablet PO SCH (22:51)
--- NOTE | 2019-08-01 23:58 | NUR ---
Nursing Progress Note Legal hold: 5250 Exp 08/12 @ 2054; Hearing 08/01/19 Report received from LIZABETH Linder with use of SBAR Client on involuntary status for GD Why are they here: Pt has not been eating or performing ADLs. She has lost 15 pounds in the last month and a half. She has also not been taking her meds and is aware she needs help but is unable to state what she needs help with. Per Dr Yañez office reports concern as the patient's weight dropped significantly from 133 to 118. Hx MDD with psychotic features. 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 Assessment What happened this shift: Pt. lying in bed at start of shift. Pt speech very quiet with long pauses. Talked to pt about need for her to urinate. Pt became tearful said it will make a big mess because she needs to have a BM. After a lot of encouragement pt did go to toilet 750cc unine a large loose BM. Had a repeat of this conversation with pt at midnight at which time she had a large void and med loose BM. Pt unable to explain why she is so reluctant to use toilet. Concerned about making a mess. Pt admitted did not really make sense. Pt cooperative with care took all routine meds. Having difficulty falling asleep. Declined Ativan "makes me dizzy" Also declined to have MD called for sleeping medication. Pt came to group room for snack ate entire sandwich and drank milk. Did not socialize Pt said she feels uncomfortable around people. S/I, H/I: Denies A/VH: Denies Sleep: Pt. in bed frequently but does not appear to sleep. ADL's: Independent Group attendance: Yes Were meds taken: Yes Any med S/E: None reported nor observed Mental Status Exam Appearance: Adequately dressed in personal top, unit pants and nonskid socks, hair down and brushed Eye contact: Direct Behavior: Isolative to room Speech: Soft, pauses often Mood: Depressed and anxious Affect: Congruent with affect. Thought process: Linear with some thought blocking. Thought Content: Somatic complaints. Cognition: A&OX4 Insight: Poor Judgment: Poor PRNs used: none Interventions Therapeutic interventions: 1:1 therapeutic assessment, maintained safe therapeutic milieu, provided active listening with positive reinforcement, provided medication administration/education/monitoring as needed; Q15 safety checks. Restraints/seclusion/emergency medication: N/A Justification of Continued Inpatient Treatment: Continued therapeutic support and medication management needed to provide stabilization, prevent decompensation, and improve coping mechanisms decreasing risk to patient and re-admittance.
[2019-08-02] MEDS: LORazepam 1 MG tablet PO PRN ×2 (01:50→21:09)
--- NOTE | 2019-08-02 05:22 | NUR ---
0200 pt agreed to take Ativan asleep since 030
[2019-08-02 07:30] VITALS: BP 119/79
[2019-08-02] MEDS: thiamine 100mg tablet PO SCH ×2 (07:32→20:40)
[2019-08-02] MEDS: multivitamins, therapeutics tablet PO SCH (07:32)
[2019-08-02] MEDS: PARoxetine 10mg tablet PO SCH (07:32)
[2019-08-02] MEDS: folic acid 1mg tablet PO SCH (07:32)
[2019-08-02] MEDS: docusate sod 100mg capsule PO SCH (07:32)
[2019-08-02] MEDS: lactose-reduced food (Ensure Enlive) - 237ml bottle PO SCH ×4 (08:03→18:23)
[2019-08-02] MEDS: ciprofloxacin 250mg tablet PO SCH ×2 (10:52→21:09)
[2019-08-02] MEDS ORDERED: lactobacillus rhamnosus 10,000 MMU CELLS/CAPSULE PO ONE (14:25)
--- NOTE | 2019-08-02 17:49 | NUR ---
Nursing Progress Note Legal hold: 5250 Exp 08/12 @ 2054; Hearing 08/01/19 Report received from LIZABETH Patten with use of [facility] Client on involuntary status for GD Why are they here: Pt has not been eating or performing ADLs. She has lost 15 pounds in the last month and a half. She has also not been taking her meds and is aware she needs help but is unable to state what she needs help with. Per Dr Yañez office reports concern as the patient's weight dropped significantly from 133 to 118. Hx MDD with psychotic features. 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 Assessment What happened this shift: Pt. awake at start of shift. Pt. took medications. Pt. went to breakfast in community room but stayed in her room for lunch. RN attempted to get pt. to urinate but pt. refused in the morning, Pt. states, "it will just be a big mess. I can't do that!" Pt. did not want to use the hat because she was afraid to have a BM in the hat. Pt. very upset at the thought of having a bowel movement. Pt. eventually did get on the toilet and did urinate and had a BM. Pt. covered the BM entirely with toilet paper so it could not be seen. RN did MOCA assessment with pt., pt. became easily frustrated and gave up easily. Pt. scored 09/05. 1:1 done at bedside, pt. denies SI/HI, A/V hallucinations but reports depression and anxiety 03/16. S/I, H/I: Denies A/VH: Denies Sleep: Pt. did not appear to nap during day shift. ADL's: Independent Group attendance: Yes Were meds taken: Yes Any med S/E: None reported nor observed Mental Status Exam Appearance: Adequately dressed in personal top, unit pants and nonskid socks, hair down and brushed Eye contact: Direct Behavior: Isolative to room Speech: Soft, pauses often Mood: Depressed and anxious Affect: Congruent with affect. Thought process: Some paranoia with thought blocking. Thought Content: horrified at using the bathroom. Cognition: A&OX4 Insight: Poor Judgment: Poor PRNs used: none Interventions Therapeutic interventions: 1:1 therapeutic assessment, maintained safe therapeutic milieu, provided active listening with positive reinforcement, provided medication administration/education/monitoring as needed; Q15 safety checks. Restraints/seclusion/emergency medication: N/A Justification of Continued Inpatient Treatment: Continued therapeutic support and medication management needed to provide stabilization, prevent decompensation, and improve coping mechanisms decreasing risk to patient and re-admittance.
[2019-08-02 20:28] VITALS: BP 153/63
--- NOTE | 2019-08-02 21:46 | NUR ---
Nursing Progress Note Legal hold: 5250 Exp 08/12 @ 2054; Hearing 08/01/19 Report received from LIZABETH Patten with use of [facility] Client on involuntary status for GD Why are they here: Pt has not been eating or performing ADLs. She has lost 15 pounds in the last month and a half. She has also not been taking her meds and is aware she needs help but is unable to state what she needs help with. Per Dr Yañez office reports concern as the patient's weight dropped significantly from 133 to 118. Hx MDD with psychotic features. 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 Assessment What happened this shift: Pt awake at start of shift. Pt states she had a "good day" denies s/i, denies a/vh. Pt is anxious when asked about toileting. She explains she doesnt want to get stool on her skin. Explained she could have wipes or use the shower and encouraged pt to attempt to sit on the toilet. Pt got out of bed and was wringing her hands and dancing around on the side of the bed anxiously but could not bring herself to sit on the toilet. Pt got back in bed and took some sips of water. Pt is extremely anxious about the thought of using the toilet. PRN for anxiety given w/evening meds. S/I, H/I: Denies A/VH: Denies Sleep: Pt. did not appear to nap during day shift. ADL's: Independent Group attendance: Yes Were meds taken: Yes Any med S/E: None reported nor observed Mental Status Exam Appearance: Adequately dressed in personal top, unit pants and nonskid socks, hair down and brushed Eye contact: Direct Behavior: Isolative to room Speech: Soft, pauses often Mood: Depressed and anxious Affect: Congruent with affect. Thought process: Some paranoia with thought blocking. Thought Content: horrified at using the bathroom. Cognition: A&OX4 Insight: Poor Judgment: Poor PRNs used: none Interventions Therapeutic interventions: 1:1 therapeutic assessment, maintained safe therapeutic milieu, provided active listening with positive reinforcement, provided medication administration/education/monitoring as needed; Q15 safety checks. Restraints/seclusion/emergency medication: N/A Justification of Continued Inpatient Treatment: Continued therapeutic support and medication management needed to provide stabilization, prevent decompensation, and improve coping mechanisms decreasing risk to patient and re-admittance.
[2019-08-03 07:44] VITALS: BP 125/80
[2019-08-03] MEDS: PARoxetine 10mg tablet PO SCH (07:55)
[2019-08-03] MEDS: multivitamins, therapeutics tablet PO SCH (07:56)
[2019-08-03] MEDS: thiamine 100mg tablet PO SCH ×2 (07:56→20:42)
[2019-08-03] MEDS: lactobacillus rhamnosus 10,000 MMU CELLS/CAPSULE PO SCH (07:56)
[2019-08-03] MEDS: folic acid 1mg tablet PO SCH (07:56)
[2019-08-03] MEDS: lactose-reduced food (Ensure Enlive) - 237ml bottle PO SCH ×3 (08:21→18:00)
[2019-08-03] MEDS: ciprofloxacin 250mg tablet PO SCH ×2 (10:22→21:01)
--- NOTE | 2019-08-03 12:02 | NUR ---
Reassessment: Pt PO 50% avg meals past 3 days w/ 25% avg ONS for lunch and dinner yesterday. PO does fluctuate w/ decrease in ADL's r/t MDD DX per MD note. Though PO does fluctuate at this time given pt current wt still likely meeting needs w/ small stature. LBM 08/02. Will continue to monitor. Recommendations: 1) Continue regular diet 2) Encourage PO intake; honor food preferences 3) Ensure Enlive TID 4) Routine bowel care 5) Wt per rx Addendum: 08/03/19 at [address] Amended: Links added.
--- NOTE | 2019-08-03 17:50 | NUR ---
Nursing Progress Note Legal hold: 5250 Exp 08/12 @ 2054; Hearing 08/01/19 Report received from LIZABETH Patten with use of [facility] Client on involuntary status for GD Why are they here: Pt has not been eating or performing ADLs. She has lost 15 pounds in the last month and a half. She has also not been taking her meds and is aware she needs help but is unable to state what she needs help with. Per Dr Yañez office reports concern as the patient's weight dropped significantly from 133 to 118. Hx MDD with psychotic features. 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 Assessment What happened this shift: Pt. awake at start of shift. Pt. took medications and ate breakfast in her room but only a few bites. Pt. denies SI/HI, A/V Hallucinations. Pt. reports anxiety and depression 03/16. Pt. encouraged to urinate but refused. Pt. is horrified at the sight of her own stool. Pt. needed consistent encouragement to sit on the toilet all day and only urinated once. Pt. had one soft, medium bowel movement as well. Pt. does not use the hat because she is afraid to have a bowel movement in the hat. Pt. is wearing depends. Pt. given wet wipes to clean herself. when depends and wet wipes are thrown away, pt. insists that the garabge be removed from her bathroom immediately, she becomes very agitated looking at the garbage. Pt. ate 25% of her lunch. Pt. ate dinner out in the community room for a short time but immediately went back to her room eating 75% of her protein and 50% of her carbs. S/I, H/I: Denies A/VH: Denies Sleep: Pt. did not appear to nap during day shift. ADL's: Independent Group attendance: Yes Were meds taken: Yes Any med S/E: None reported nor observed Mental Status Exam Appearance: Adequately dressed in personal top, unit pants and nonskid socks, hair down and brushed Eye contact: Direct Behavior: Isolative to room Speech: Soft, pauses often Mood: Depressed and anxious Affect: Congruent with affect. Thought process: Some paranoia with thought blocking. Thought Content: horrified at using the bathroom. Cognition: A&OX4 Insight: Poor Judgment: Poor PRNs used: none Interventions Therapeutic interventions: 1:1 therapeutic assessment, maintained safe therapeutic milieu, provided active listening with positive reinforcement, provided medication administration/education/monitoring as needed; Q15 safety checks. Restraints/seclusion/emergency medication: N/A Justification of Continued Inpatient Treatment: Continued therapeutic support and medication management needed to provide stabilization, prevent decompensation, and improve coping mechanisms decreasing risk to patient and re-admittance.
[2019-08-03 20:00] VITALS: BP 145/82
[2019-08-03] MEDS: LORazepam 1 MG tablet PO PRN (21:01)
[2019-08-04] MEDS: OLANZAPINE 5 MG TABLET PO PRN ×2 (02:39→20:16)
--- NOTE | 2019-08-04 02:59 | NUR ---
Nursing Progress Note Legal hold: 5250 Exp 08/12 @ 2054; Hearing 08/01/19 Report received from LIZABETH Gonzalez with use of [facility] Client on involuntary status for GD Why are they here: Pt has not been eating or performing ADLs. She has lost 15 pounds in the last month and a half. She has also not been taking her meds and is aware she needs help but is unable to state what she needs help with. Per Dr Yañez office reports concern as the patient's weight dropped significantly from 133 to 118. Hx MDD with psychotic features. 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 Assessment What happened this shift: Pt remained in bed for the duration of the shift. Spent some time talking w/her daughter and daughter states she plans to visit this morning. She was quite agitated at change of shift stating she doesn't go to the bathroom because she doesn't feel safe here and she feels she is being disrespected. Explained to patient that we are only encouraging her to use the toilet so her health isnt further compromised. Pt understands but remains very anxious about using the toilet. Pt agreed to take prn for anxiety and this helped with her being able to use the toilet tonight. Pt used the toilet one time tonight and urinated quite a large amount but she would not use a hat on the toilet. She is also refusing a bladder scan but did state prior to using the toilet she was very uncomfortable holding her urine. pt seemed relieved after using the toilet and she requested clean scrubs and briefs but declined a shower. Pt returned to bed and drank a portion of a strawberry protein shake before bed. She states she prefers chocolate. Pt was unable to sleep and remains anxious, she was given 5mg of zyprexa and is now sleeping. S/I, H/I: Denies A/VH: Denies Sleep: difficulty falling asleep. ADL's: Independent Group attendance: Yes Were meds taken: Yes Any med S/E: None reported nor observed Mental Status Exam Appearance: Adequately dressed in personal top, unit pants and nonskid socks, hair down and brushed Eye contact: Direct Behavior: Isolative to room Speech: Soft, pauses often Mood: Depressed and anxious Affect: Congruent with affect. Thought process: Some paranoia with thought blocking. Thought Content: fearful of using the toilet, states she is feeling afraid of being here and disrespected. Cognition: A&OX4 Insight: Poor Judgment: Poor PRNs used: none Interventions Therapeutic interventions: 1:1 therapeutic assessment, maintained safe therapeutic milieu, provided active listening with positive reinforcement, provided medication administration/education/monitoring as needed; Q15 safety checks. Restraints/seclusion/emergency medication: N/A Justification of Continued Inpatient Treatment: Continued therapeutic support and medication management needed to provide stabilization, prevent decompensation, and improve coping mechanisms decreasing risk to patient and re-admittance.
[2019-08-04 08:00] VITALS: BP 103/62
[2019-08-04] MEDS: folic acid 1mg tablet PO SCH (08:30)
[2019-08-04] MEDS: thiamine 100mg tablet PO SCH ×2 (08:30→20:16)
[2019-08-04] MEDS: lactobacillus rhamnosus 10,000 MMU CELLS/CAPSULE PO SCH (08:30)
[2019-08-04] MEDS: multivitamins, therapeutics tablet PO SCH (08:30)
[2019-08-04] MEDS: lactose-reduced food (Ensure Enlive) - 237ml bottle PO SCH ×3 (08:31→17:20)
[2019-08-04] MEDS: LORazepam 1 MG tablet PO PRN (08:31)
[2019-08-04] MEDS: ciprofloxacin 250mg tablet PO SCH ×2 (10:58→21:10)
--- NOTE | 2019-08-04 17:04 | NUR ---
Nursing Progress Note Legal hold: 5250 Report received from LIZABETH Patten with use of [facility] Client on involuntary status for GD Why are they here: Pt has not been eating or performing ADLs. She has lost 15 pounds in the last month and a half. She has also not been taking her meds and is aware she needs help but is unable to state what she needs help with. Per Dr Yañez office reports concern as the patient's weight dropped significantly from 133 to 118. Hx MDD with psychotic features. 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 Assessment What happened this shift: Pt awake on her bed at start of shift. She is quiet and cooperative. Pt is in need of "bladder training." She requires prompting and encouragement to urinate; 700cc measured in hat. S/I, H/I: Denies A/VH: Denies Sleep: Pt. did not appear to nap during day shift. ADL's: Independent Group attendance: Yes Were meds taken: Yes Any med S/E: None reported nor observed Mental Status Exam Appearance: Adequately dressed Eye contact: Direct Behavior: Isolative to room Speech: Soft, pauses often Mood: Depressed and anxious Affect: Congruent with affect. Thought process: Some paranoia with thought blocking. Thought Content: horrified at using the bathroom. Cognition: A&OX4 Insight: Poor Judgment: Poor PRNs used: none Interventions Therapeutic interventions: Provided therapeutic communication with active listening, maintained safe therapeutic milieu, provided medication administration/education/monitoring as needed; Q15 safety checks. Restraints/seclusion/emergency medication: N/A Justification of Continued Inpatient Treatment: Continued therapeutic support and medication management needed to provide stabilization, prevent decompensation, and improve coping mechanisms decreasing risk to patient and re-admittance.
[2019-08-04] MEDS: LORazepam 0.5 MG tablet PO SCH (20:16)
[2019-08-04 20:25] VITALS: BP 109/59
[2019-08-04] MEDS ORDERED: PARoxetine 10mg tablet PO SCH (21:00)
--- NOTE | 2019-08-05 01:02 | NUR ---
Nursing Progress Note Legal hold: 5250 Report received from LIZABETH Gonzalez with use of [facility] Client on involuntary status for GD Why are they here: Pt has not been eating or performing ADLs. She has lost 15 pounds in the last month and a half. She has also not been taking her meds and is aware she needs help but is unable to state what she needs help with. Per Dr Yañez office reports concern as the patient's weight dropped significantly from 133 to 118. Hx MDD with psychotic features. 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 Assessment What happened this shift: Patient is in need of "bladder training." She requires prompting and encouragement to urinate. Patient is in her room in bed at change of shift. She appears fearful when approached and takes long periods of time to respond to questions. She does report anxiety this evening and but does not elaborate on that. She spends her whole evening isolating to her room and not interaction with others. Her roommate tries to talk to her but patient keeps conversation to a minimum. After patients evening does of Cipro, patient is verbally directed to use the toilet to encourage her to use the restroom instead of holding it. Patient agrees, she does not use the hat but is heard voiding a large amount of urine. Patient then returns to her bed where she remains the rest of the evening. S/I, H/I: Denies A/VH: Denies Sleep: See sleep assessment ADL's: Independent, needs prompting Group attendance: Yes Were meds taken: Yes Any med S/E: None reported nor observed Mental Status Exam Appearance: Adequately dressed Eye contact: Direct Behavior: Isolative to room Speech: Soft, pauses often Mood: Depressed and anxious Affect: Congruent with affect. Thought process: Some paranoia with thought blocking. Thought Content: Horrified at using the bathroom. Cognition: A&OX4 Insight: Poor Judgment: Poor PRNs used: None Interventions Therapeutic interventions: Provided therapeutic communication with active listening, maintained safe therapeutic milieu, provided medication administration/education/monitoring as needed; Q15 safety checks. Restraints/seclusion/emergency medication: N/A Justification of Continued Inpatient Treatment: Continued therapeutic support and medication management needed to provide stabilization, prevent decompensation, and improve coping mechanisms decreasing risk to patient and re-admittance.
[2019-08-05] MEDS: thiamine 100mg tablet PO SCH ×2 (08:14→20:51)
[2019-08-05] MEDS: multivitamins, therapeutics tablet PO SCH (08:14)
[2019-08-05] MEDS: LORazepam 0.5 MG tablet PO SCH ×3 (08:14→20:51)
[2019-08-05] MEDS: folic acid 1mg tablet PO SCH (08:14)
[2019-08-05] MEDS: lactobacillus rhamnosus 10,000 MMU CELLS/CAPSULE PO SCH (08:14)
[2019-08-05] MEDS: lactose-reduced food (Ensure Enlive) - 237ml bottle PO SCH ×3 (08:15→18:01)
[2019-08-05 08:18] VITALS: BP 115/71
[2019-08-05] MEDS: ciprofloxacin 250mg tablet PO SCH ×2 (11:25→20:52)
--- NOTE | 2019-08-05 18:04 | NUR ---
Nursing Progress Note Legal hold: 5250 Report received from LIZABETH Maxwell with use of [facility] Client on involuntary status for GD Why are they here: Pt has not been eating or performing ADLs. She has lost 15 pounds in the last month and a half. She has also not been taking her meds and is aware she needs help but is unable to state what she needs help with. Per Dr Yañez office reports concern as the patient's weight dropped significantly from 133 to 118. Hx MDD with psychotic features. 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 Assessment What happened this shift: Pt awake on her bed at start of shift. She presents as depressed and confused. Bladder training performed q 4 hours; output 0830 700cc, 1300 200cc, 1600 675cc. S/I, H/I: Denies A/VH: Denies Sleep: Isolates on her bed ADL's: Independent Group attendance: Yes Were meds taken: Yes Any med S/E: None reported nor observed Mental Status Exam Appearance: Adequately dressed Eye contact: Direct Behavior: Isolative to room Speech: Soft, pauses often Mood: Depressed and anxious Affect: Congruent with affect. Thought process: Some paranoia with thought blocking. Thought Content: horrified at using the bathroom. Cognition: A&OX4 Insight: Poor Judgment: Poor PRNs used: none Interventions Therapeutic interventions: Provided therapeutic communication with active listening, maintained safe therapeutic milieu, provided medication administration/education/monitoring as needed; Q15 safety checks. Restraints/seclusion/emergency medication: N/A Justification of Continued Inpatient Treatment: Continued therapeutic support and medication management needed to provide stabilization, prevent decompensation, and improve coping mechanisms decreasing risk to patient and re-admittance.
[2019-08-05 19:39] VITALS: BP 119/65
[2019-08-05] MEDS: OLANZAPINE 5 MG TABLET PO PRN (20:52)
[2019-08-05] MEDS: PARoxetine 10mg tablet PO SCH (20:54)
--- NOTE | 2019-08-06 02:14 | NUR ---
Nursing Progress Note Legal hold: 5250 Report received from LIZABETH Hsieh with use of [facility] Client on involuntary status for GD Why are they here: Pt has not been eating or performing ADLs. She has lost 15 pounds in the last month and a half. She has also not been taking her meds and is aware she needs help but is unable to state what she needs help with. Per Dr Yañez office reports concern as the patient's weight dropped significantly from 133 to 118. Hx MDD with psychotic features. 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 Assessment What happened this shift: Patient in her room in bed awake at change of shift. She still presents as fearful and answers questions with minimal 1-2 word responses. She still reports feeling anxious throughout the day. She remains isolative and keeps to her room and in bed. She did get up and toilet herself this evening and go pee without prompting. She took her medications without issue this evening. S/I, H/I: Denies A/VH: Denies Sleep: Currently sleeping, see sleep assessment ADL's: Independent Group attendance: No groups this shift Were meds taken: Yes Any med S/E: None reported nor observed Mental Status Exam Appearance: Adequately dressed Eye contact: Direct Behavior: Isolative to room Speech: Soft, pauses often Mood: Depressed and anxious Affect: Congruent with affect. Thought process: Some paranoia with thought blocking. Thought Content: Horrified at using the bathroom. Cognition: A&OX4 Insight: Poor Judgment: Poor PRNs used: Zyprexa Interventions Therapeutic interventions: Provided therapeutic communication with active listening, maintained safe therapeutic milieu, provided medication administration/education/monitoring as needed; Q15 safety checks. Restraints/seclusion/emergency medication: N/A Justification of Continued Inpatient Treatment: Continued therapeutic support and medication management needed to provide stabilization, prevent decompensation, and improve coping mechanisms decreasing risk to patient and re-admittance.
[2019-08-06] MEDS: lactose-reduced food (Ensure Enlive) - 237ml bottle PO SCH ×3 (08:00→18:05)
[2019-08-06] MEDS: lactobacillus rhamnosus 10,000 MMU CELLS/CAPSULE PO SCH (08:04)
[2019-08-06] MEDS: multivitamins, therapeutics tablet PO SCH (08:04)
[2019-08-06] MEDS: LORazepam 0.5 MG tablet PO SCH ×3 (08:04→21:05)
[2019-08-06] MEDS: folic acid 1mg tablet PO SCH (08:04)
[2019-08-06] MEDS: thiamine 100mg tablet PO SCH ×2 (08:05→21:05)
[2019-08-06 08:14] VITALS: BP 121/63
[2019-08-06] MEDS: ciprofloxacin 250mg tablet PO SCH ×2 (10:16→21:05)
--- NOTE | 2019-08-06 17:26 | NUR ---
Nursing Progress Note Legal hold: 5250 Report received from LIZABETH Maxwell with use of [facility] Client on involuntary status for GD Why are they here: Pt has not been eating or performing ADLs. She has lost 15 pounds in the last month and a half. She has also not been taking her meds and is aware she needs help but is unable to state what she needs help with. Per Dr Yañez office reports concern as the patient's weight dropped significantly from 133 to 118. Hx MDD with psychotic features. 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 Assessment What happened this shift: Patient in her room in bed awake at change of shift. She presents as fearful and answers questions with minimal 1-2 word responses. She states she doesnt know what to say. She denies SI/HI. She still reports feeling sad throughout the day. She remains isolative and keeps to her room and in bed. She would toilet herself to urinate when prompted by this RN. She stated that she went without prompting as well. She took her medications without issue. She went one time to group room to watch TV shortly. S/I, H/I: Denies A/VH: Denies Sleep: Per noc shift 6.5 h sleep ADL's: Independent but does not want to do anything for self care. Group attendance: No Were meds taken: Yes Any med S/E: None reported nor observed Mental Status Exam Appearance: Adequately dressed Eye contact: Direct Behavior: Isolative to room Speech: Soft, pauses often Mood: Depressed and anxious Affect: Congruent with affect. Thought process: Some paranoia with thought blocking. Thought Content: Horrified at using the bathroom. Cognition: A&OX4 Insight: Poor Judgment: Poor PRNs used: None Interventions Therapeutic interventions: Provided therapeutic communication with active listening, maintained safe therapeutic milieu, provided medication administration/education/monitoring as needed; Q15 safety checks. Restraints/seclusion/emergency medication: N/A Justification of Continued Inpatient Treatment: Continued therapeutic support and medication management needed to provide stabilization, prevent decompensation, and improve coping mechanisms decreasing risk to patient and re-admittance.
[2019-08-06 19:50] VITALS: BP 111/60
[2019-08-06] MEDS: OLANZAPINE 5 MG TABLET PO PRN (21:05)
[2019-08-06] MEDS: PARoxetine 10mg tablet PO SCH (21:06)
--- NOTE | 2019-08-06 23:57 | NUR ---
Nursing Progress Note Legal hold: 5250 Report received from LIZABETH Hsieh with use of [facility] Client on involuntary status for GD Why are they here: Pt has not been eating or performing ADLs. She has lost 15 pounds in the last month and a half. She has also not been taking her meds and is aware she needs help but is unable to state what she needs help with. Per Dr Yañez office reports concern as the patient's weight dropped significantly from 133 to 118. Hx MDD with psychotic features. 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 Assessment What happened this shift: Patient in her room in bed awake at change of shift. She is quiet but a little more talkative this evening. She reports anxiety and states she feels it has not improved since being on the unit, she also states "I am really depressed." She asks questions about her scheduled Ativan doses she gets throughout the day (How much, and how often) and states she feels like it's barely helping. She does use the restroom upon request but is hesitant and states "Like just go normally?" She is heard urinating a large volume, then washing her hands and getting back into bed. Patient remains isolative, never leaving her room this shift. S/I, H/I: Denies A/VH: Denies Sleep: Currently sleeping, see sleep assessment ADL's: Independent but does not want to do anything for self care. Group attendance: No Were meds taken: Yes Any med S/E: None reported nor observed Mental Status Exam Appearance: Adequately dressed Eye contact: Direct Behavior: Isolative to room Speech: Soft, pauses often Mood: Depressed and anxious Affect: Congruent with affect. Thought process: Some paranoia with thought blocking. Thought Content: Horrified at using the bathroom. Cognition: A&OX4 Insight: Poor Judgment: Poor PRNs used: Zyprexa Interventions Therapeutic interventions: Provided therapeutic communication with active listening, maintained safe therapeutic milieu, provided medication administration/education/monitoring as needed; Q15 safety checks. Restraints/seclusion/emergency medication: N/A Justification of Continued Inpatient Treatment: Continued therapeutic support and medication management needed to provide stabilization, prevent decompensation, and improve coping mechanisms decreasing risk to patient and re-admittance.
[2019-08-07 08:00] VITALS: BP 125/71
[2019-08-07] MEDS: lactose-reduced food (Ensure Enlive) - 237ml bottle PO SCH ×3 (08:00→18:05)
[2019-08-07] MEDS: LORazepam 0.5 MG tablet PO SCH ×3 (08:31→20:21)
[2019-08-07] MEDS: lactobacillus rhamnosus 10,000 MMU CELLS/CAPSULE PO SCH (08:31)
[2019-08-07] MEDS: thiamine 100mg tablet PO SCH ×2 (08:31→20:20)
[2019-08-07] MEDS: multivitamins, therapeutics tablet PO SCH (08:31)
[2019-08-07] MEDS: folic acid 1mg tablet PO SCH (08:31)
[2019-08-07] MEDS: ciprofloxacin 250mg tablet PO SCH ×2 (10:47→20:20)
--- NOTE | 2019-08-07 14:16 | NUR ---
Nursing Progress Note Legal hold: 2950 Report received from LIZABETH Maxwell with use of [facility] Client on involuntary status for GD Why are they here: Pt has not been eating or performing ADLs. She has lost 15 pounds in the last month and a half. She has also not been taking her meds and is aware she needs help but is unable to state what she needs help with. Per Dr Yañez office reports concern as the patient's weight dropped significantly from 133 to 118. Hx MDD with psychotic features. 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 Assessment What happened this shift: Patient in her room in bed awake at change of shift. Kasey is more talkative this morning. She follows prompts to get up and go to the restroom. She is unable to urinate. Pt showered. Ativan PRN given in AM. S/I, H/I: Denies A/VH: Denies Sleep: isolates on bed awake ADL's: Required prompts and encouragement to shower; tried to get out of it Group attendance: Yes Were Meds taken: Yes Any med S/E: None reported nor observed Mental Status Exam Appearance: Adequately dressed Eye contact: Fair Behavior: Isolative to room Speech: Soft, pauses often Mood: Depressed and anxious Affect: Congruent with affect. Thought process: Some paranoia with thought blocking. Thought Content: Horrified at using the bathroom. Cognition: A&OX4 Insight: Poor Judgment: Poor PRNs used: Ativan Interventions Therapeutic interventions: Provided therapeutic communication with active listening, maintained safe therapeutic milieu, provided medication administration/education/monitoring as needed; Q15 safety checks. Restraints/seclusion/emergency medication: N/A Justification of Continued Inpatient Treatment: Continued therapeutic support and medication management needed to provide stabilization, prevent decompensation, and improve coping mechanisms decreasing risk to patient and re-admittance. Addendum: 08/07/19 at 1529 by Kya Zarriello RN Urine 400cc clear and light yellow
[2019-08-07 20:00] VITALS: BP 98/57
[2019-08-07] MEDS: PARoxetine 10mg tablet PO SCH (20:20)
--- NOTE | 2019-08-07 23:21 | NUR ---
Nursing Progress Note Legal hold: 5250 Report received from LIZABETH Hsieh with use of [facility] Client on involuntary status for GD Why are they here: Pt has not been eating or performing ADLs. She has lost 15 pounds in the last month and a half. She has also not been taking her meds and is aware she needs help but is unable to state what she needs help with. Per Dr Yañez office reports concern as the patient's weight dropped significantly from 133 to 118. Hx MDD with psychotic features. 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 Assessment What happened this shift: The patient was found in bed. She has a flat affect and blank stare, thought blocking and latent speech. Patient reports that she's had memory problems and won't be able to talk much. She says that she's tired and does not want to talk. She was compliant with medications and remains in bed. S/I, H/I: Denies A/VH: Denies Sleep: See sleep assessment ADL's: Independent. Needs prompting Group attendance: No groups at night Were meds taken: Yes Any med S/E: None reported nor observed Mental Status Exam Appearance: Adequately dressed laying in bed. Eye contact: Direct Behavior: Isolative to room Speech: Soft, latent Mood: Depressed. Affect: Congruent with affect. Thought process: Some paranoia with thought blocking. Thought Content: Horrified at using the bathroom. Cognition: A&OX4 Insight: Poor Judgment: Poor PRNs used: Interventions Therapeutic interventions: Provided therapeutic communication with active listening, maintained safe therapeutic milieu, provided medication administration/education/monitoring as needed; Q15 safety checks. Restraints/seclusion/emergency medication: N/A Justification of Continued Inpatient Treatment: Continued therapeutic support and medication management needed to provide stabilization, prevent decompensation, and improve coping mechanisms decreasing risk to patient and re-admittance.
[2019-08-08 08:00] VITALS: BP 131/74
[2019-08-08] MEDS: thiamine 100mg tablet PO SCH ×2 (08:11→20:31)
[2019-08-08] MEDS: LORazepam 0.5 MG tablet PO SCH ×3 (08:12→20:31)
[2019-08-08] MEDS: lactobacillus rhamnosus 10,000 MMU CELLS/CAPSULE PO SCH (08:12)
[2019-08-08] MEDS: folic acid 1mg tablet PO SCH (08:12)
[2019-08-08] MEDS: multivitamins, therapeutics tablet PO SCH (08:12)
[2019-08-08] MEDS: lactose-reduced food (Ensure Enlive) - 237ml bottle PO SCH ×3 (08:21→18:01)
[2019-08-08] MEDS: ciprofloxacin 250mg tablet PO SCH (10:11)
--- NOTE | 2019-08-08 14:25 | NUR ---
Nursing Progress Note Legal hold: 5250 Report received from LIZABETH Miller with use of [facility] Client on involuntary status for GD Why are they here: Pt has not been eating or performing ADLs. She has lost 15 pounds in the last month and a half. She has also not been taking her meds and is aware she needs help but is unable to state what she needs help with. Per Dr Yañez office reports concern as the patient's weight dropped significantly from 133 to 118. Hx MDD with psychotic features. 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 Assessment What happened this shift: Pt rated her depression at a 5/10 this morning, denied SI. Pt admitted to some anxiety over being sick and not at home. Pt realizes that she needed help and medication adjustments. Pt c/o some bladder "discomfort" this morning which seemed to be relieved after she took herself to the bathroom immediately after the assessment and voided independently in the toilet. Pt continues on ABX Cipro for UTI, no adverse reactions noted. Pt ate 50% of breakfast though refused her Ensure. At lunchtime, pt ate 75% and drank 100% of her Ensure with encouragement. 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 When PCT encouraged her to drink her Ensure at lunchtime she stood right next to him until she had drank it all down. Pt is cooperative with assessments and medications, though has a little bit of a delayed response when answering questions, this presents to this RN as more of a lack of energy or motivation to answer rather than as thought blocking, possibly a manifestation of some anhedonia. S/I, H/I: Pt denies A/VH: Pt denies Sleep: Pt slept 10.25 hours per noc shift report ADL's: Independent with prompting and encouragement. Group attendance: No Were meds taken: Yes Any med S/E: None noted or reported Mental Status Exam Appearance: Clean, neatly brushed hair Eye contact: Good Behavior: Quiet, slow moving and speaking, mostly isolative to self, holds her urine for long periods of time/reluctance to use the toilet. Speech: Clear, audible, soft-spoken, somewhat of a delayed response to questions Mood: Depressed, anxious, anhedonic Affect: Blunted, depressed, anhedonic Thought process: Linear Thought Content: Realizes she is sick, some reluctance to use the toilet Cognition: A&O X 4 Insight: Fair Judgment: Fair PRNs used: None Interventions Therapeutic interventions: 1:1 assessment, establishment of rapport, encouragement to express thoughts and feelings, active listening, encouragement to go to the bathroom and urinate more frequently, encouragement of PO intake of food, fluids, and supplement, encouragement to perform personal hygiene and shower, encouragement to attend groups, prompting and direction, positive reinforcement, medication administration/education/monitoring, Q15 min safety checks. Restraints/seclusion/emergency medication: N/A Justification of Continued Inpatient Treatment: Continued therapeutic support and medication management needed to provide stabilization, prevent decompensation, and improve coping mechanisms decreasing risk to patient and re-admittance.
[2019-08-08 20:00] VITALS: BP 133/70
[2019-08-08] MEDS: PARoxetine 10mg tablet PO SCH (20:31)
--- NOTE | 2019-08-09 01:12 | NUR ---
Nursing Progress Note Legal hold: 5250 Report received from LIZABETH Gonzalez with use of [facility] Client on involuntary status for GD Why are they here: Pt has not been eating or performing ADLs. She has lost 15 pounds in the last month and a half. She has also not been taking her meds and is aware she needs help but is unable to state what she needs help with. Per Dr Yañez office reports concern as the patient's weight dropped significantly from 133 to 118. Hx MDD with psychotic features. 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 Assessment What happened this shift: Pt is laying in bed at change of shift. Pt reports depression 01/14, anxiety 02/14. Pt denies s/i, denies h/i. Pt gives minimal response to questions. She report she has some discomfort in her abdomen. Pt was encouraged to use the toilet and pt states "I just used it before you got here, theres nothing left in my bladder. " Pt was encouraged to use the toilet before going to sleep. Pt was also encouraged to get out of bed and walk before bed and she remained in bed. Pt reports she has been sleeping well. She is eating some of her meals and drinking partial amounts of her protein shake. She states her appeitite has improved some but she still doesnt feel she has a full appetite. Pt took a call from her daughter and remained in bed for duration of the shift. S/I, H/I: Pt denies A/VH: Pt denies Sleep: Pt sleeps well ADL's: Independent with prompting and encouragement. Group attendance: No Were meds taken: Yes Any med S/E: None noted or reported Mental Status Exam Appearance: Clean, neatly brushed hair Eye contact: Good Behavior: Quiet, slow moving and speaking, mostly isolative to self, holds her urine for long periods of time/reluctance to use the toilet. Speech: Clear, audible, soft-spoken, somewhat of a delayed response to questions Mood: Depressed, anxious, anhedonic Affect: Blunted Thought process: Linear Thought Content: Realizes she is sick, some reluctance to use the toilet Cognition: A&O X 4 Insight: Fair Judgment: Fair PRNs used: None Interventions Therapeutic interventions: 1:1 assessment, establishment of rapport, encouragement to express thoughts and feelings, active listening, encouragement to go to the bathroom and urinate more frequently, encouragement of PO intake of food, fluids, and supplement, encouragement to perform personal hygiene and shower, encouragement to attend groups, prompting and direction, positive reinforcement, medication administration/education/monitoring, Q15 min safety checks. Restraints/seclusion/emergency medication: N/A Justification of Continued Inpatient Treatment: Continued therapeutic support and medication management needed to provide stabilization, prevent decompensation, and improve coping mechanisms decreasing risk to patient and re-admittance.
[2019-08-09] MEDS: thiamine 100mg tablet PO SCH ×2 (07:37→20:21)
[2019-08-09] MEDS: folic acid 1mg tablet PO SCH (07:37)
[2019-08-09] MEDS: lactobacillus rhamnosus 10,000 MMU CELLS/CAPSULE PO SCH (07:37)
[2019-08-09] MEDS: multivitamins, therapeutics tablet PO SCH (07:37)
[2019-08-09] MEDS: LORazepam 0.5 MG tablet PO SCH ×3 (07:37→20:21)
[2019-08-09 08:00] VITALS: BP 146/74
[2019-08-09] MEDS: lactose-reduced food (Ensure Enlive) - 237ml bottle PO SCH ×3 (08:24→18:00)
--- NOTE | 2019-08-09 12:18 | NUR ---
Nursing Progress Note Legal hold: 5250 Report received from LIZABETH Patten with use of [facility] Client on involuntary status for GD Why are they here: Pt has not been eating or performing ADLs. She has lost 15 pounds in the last month and a half. She has also not been taking her meds and is aware she needs help but is unable to state what she needs help with. Per Dr Yañez office reports concern as the patient's weight dropped significantly from 133 to 118. Hx MDD with psychotic features. 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 Assessment What happened this shift: Assumed care of this client at 0630 hours this am. Client appeared guarded and suspicious upon initial assessment. Compliant with assessment and medications this morning. Denies pain or problems and has required few prompts as it pertains to her conducting her ADL's. Client has been isolative to her room except for am meal which she presented to Group Room for breakfast but only consumed her nutritional supplement. She has declined participation in Group activities today. Client will be prompted to participate in her care and continues to stay amicable to all aspects of her care. S/I, H/I: Pt denies A/VH: Pt denies Sleep: Pt sleeps well ADL's: Independent with prompting and encouragement. Group attendance: No Were meds taken: Yes Any med S/E: None noted or reported Mental Status Exam Appearance: Clean, neatly brushed hair Eye contact: Good Behavior: Quiet, slow moving and speaking, mostly isolative to self, holds her urine for long periods of time/reluctance to use the toilet. Speech: Clear, audible, soft-spoken, somewhat of a delayed response to questions Mood: Depressed, anxious, anhedonic Affect: Blunted Thought process: Linear Thought Content: Realizes she is sick, some reluctance to use the toilet Cognition: A&O X 4 Insight: Fair Judgment: Fair PRNs used: None Interventions Therapeutic interventions: 1:1 assessment, establishment of rapport, encouragement to express thoughts and feelings, active listening, encouragement to go to the bathroom and urinate more frequently, encouragement of PO intake of food, fluids, and supplement, encouragement to perform personal hygiene and shower, encouragement to attend groups, prompting and direction, positive reinforcement, medication administration/education/monitoring, Q15 min safety checks. Restraints/seclusion/emergency medication: N/A Justification of Continued Inpatient Treatment: Continued therapeutic support and medication management needed to provide stabilization, prevent decompensation, and improve coping mechanisms decreasing risk to patient and re-admittance. Addendum: 08/09/19 at 1455 by Braulio Estrada RN Client refused noon meal and medications today. Charrer spoke with client and prompted her to try to eat dinner this evening. Client remains in her bed with covers partially hiding her face.
[2019-08-09 20:00] VITALS: BP 109/62
[2019-08-09] MEDS: PARoxetine 10mg tablet PO SCH (20:25)
--- NOTE | 2019-08-09 22:58 | NUR ---
Nursing Progress Note Legal hold: 5250 Report received from LIZABETH Gonzalez with use of [facility] Client on involuntary status for GD Why are they here: Pt has not been eating or performing ADLs. She has lost 15 pounds in the last month and a half. She has also not been taking her meds and is aware she needs help but is unable to state what she needs help with. Per Dr Yañez office reports concern as the patient's weight dropped significantly from 133 to 118. Hx MDD with psychotic features. 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 Assessment What happened this shift: Pt was laying in bed at change of shift. She remained in bed for the entire shift. She states she used the toilet once during day shift. I encouraged her to use the toilet before bed and she did but wanted her pants and brief removed from the room immediately. She wouldnt urinate until the items were removed then she said she was disappointed because she didnt "do it right". I asked her what she meant and she wouldn't say. S/I, H/I: Pt denies A/VH: Pt denies Sleep: Pt sleeps well ADL's: Independent with prompting and encouragement. Group attendance: No Were meds taken: Yes Any med S/E: None noted or reported Mental Status Exam Appearance: Clean, neatly brushed hair Eye contact: Good Behavior: Quiet, slow moving and speaking, mostly isolative to self, holds her urine for long periods of time/reluctance to use the toilet. Speech: Clear, audible, soft-spoken, somewhat of a delayed response to questions Mood: Depressed, anxious, anhedonic Affect: Blunted Thought process: Linear Thought Content: Realizes she is sick, reluctant to use the toilet Cognition: A&O X 4 Insight: Fair Judgment: Fair PRNs used: None Interventions Therapeutic interventions: 1:1 assessment, establishment of rapport, encouragement to express thoughts and feelings, active listening, encouragement to go to the bathroom and urinate more frequently, encouragement of PO intake of food, fluids, and supplement, encouragement to perform personal hygiene and shower, encouragement to attend groups, prompting and direction, positive reinforcement, medication administration/education/monitoring, Q15 min safety checks. Restraints/seclusion/emergency medication: N/A Justification of Continued Inpatient Treatment: Continued therapeutic support and medication management needed to provide stabilization, prevent decompensation, and improve coping mechanisms decreasing risk to patient and re-admittance.
[2019-08-10] MEDS: lactobacillus rhamnosus 10,000 MMU CELLS/CAPSULE PO SCH (07:27)
[2019-08-10] MEDS: lactose-reduced food (Ensure Enlive) - 237ml bottle PO SCH ×2 (07:27→13:18)
[2019-08-10] MEDS: thiamine 100mg tablet PO SCH (07:27)
[2019-08-10] MEDS: LORazepam 0.5 MG tablet PO SCH ×2 (07:27→13:18)
[2019-08-10] MEDS: folic acid 1mg tablet PO SCH (07:27)
[2019-08-10] MEDS: multivitamins, therapeutics tablet PO SCH (07:27)
[2019-08-10 08:00] VITALS: BP 119/63
[2019-08-10] MEDS ORDERED: Lorazepam PO (14:56)
[2019-08-10] MEDS ORDERED: PARO10TA4 PO (14:56)
--- NOTE | 2019-08-10 16:10 | NUR ---
Nursing Discharge Note Patient is discharged at 1610 and escorted off the unit by Nevin Menjivar. Patient is ambulatory and her sister will meet her in the hospital lobby to pick her up and then drive her to their home. Follow up instructions are gone over with patient and patient is provided the opportunity to ask questions. Patient verbalizes understanding of information provided. All valuables are provided back to patient. Patient continues to appear anxious but has improved since admit. She is using the bathroom on her own with encouragement an attending some meals in the group room with others. Nicotine replacement is not offered because patient is a non-smoker.
== END 2019-08-10 16:10 | disposition home or self-care (01) | DRG 885 ==
LOC: ADULT MH 20:23
PROVIDERS: ADMIT Psychiatry & Neurology Psychiatry; ATTEND Psychiatry & Neurology Psychiatry
DX: F33.2 Major depressive disorder, recurrent severe without psychotic features (principal); N39.0 Urinary tract infection, site not specified; Z68.1 Body mass index [BMI] 19.9 or less, adult; R68.2 Dry mouth, unspecified; K59.00 Constipation, unspecified; R33.9 Retention of urine, unspecified; F41.9 Anxiety disorder, unspecified; F42.8 Other obsessive-compulsive disorder; R41.3 Other amnesia; R63.4 Abnormal weight loss; Z79.899 Other long term (current) drug therapy; Z87.891 Personal history of nicotine dependence; Z91.14 Patient's other noncompliance with medication regimen
CPT/HCPCS: 36415; 70544; 70551; 74176; 80061; 81001; 83036; 85025; 87077; 87081; 87088; 87186; J0696